=== PATIENT | male | born 1990 | race African-American/Black ===

== ENCOUNTER 2020-12-15 01:49 | Inpatient (IN) | payer MEDICAID ==
[~2020-12-15] VITALS: Ht 175.3 cm; Wt 77.1 kg
[2020-12-15] MEDS ORDERED: MORPHINE SULFATE INJ 4 MG/ML DISP.SYRIN ONE ×2 (02:27→05:05)
[2020-12-15] MEDS ORDERED: MORPHINE SULFATE INJ 2 MG/ML DISP.SYRIN IV ONE ×2 (02:30→05:00)
[2020-12-15 02:37] LABS: BASOPHILS % (AUTO) 0.3 % (0.0-2.0); EOSINOPHILS % (AUTO) 0.5 % (0.0-6.0); HEMATOCRIT 38 % (39-51); HEMOGLOBIN 12.3 g/dL (13.5-17.5); LYMPHOCYTES # (AUTO) 1.2 /CMM (0.8-4.8); LYMPHOCYTES % (AUTO) 13.8 % (20.0-44.0); MEAN CORPUSCULAR HGB CONC 32 g/dl (31.0-36.0); MEAN CORPUSCULAR VOLUME 71 fL (80-96); MONOCYTES # (AUTO) 1.3 /CMM (0.1-1.30); NEUTROPHILS # (AUTO) 6.1 /CMM (1.8-8.9); NEUTROPHILS % (AUTO) 70.4 % (43.0-81.0); PLATELET COUNT (AUTO) 284 /CMM (150-450); WHITE BLOOD COUNT (AUTO) 8.6 K/uL (4.3-11.0)
[2020-12-15 02:50] LABS: CREATININE 1.2 mg/dL (0.6-1.3); POTASSIUM 3.8 mmol/L (3.5-5.1)
[2020-12-15] MEDS ORDERED: IOHEXOL-300 100 ML VIAL IV ONE (03:15)
[2020-12-15 04:10] LABS: EOSINOPHILS % (MANUAL) 1 % (0-4); LYMPHOCYTES % (MANUAL) 9 % (16-48); MONOCYTES % (MANUAL) 17 % (0-11.0); NEUTROPHILS % (MANUAL) 73 (42-76)
[2020-12-15] MEDS ORDERED: KETOROLAC TROMETHAMINE 15 MG/ML VIAL ONE (04:27)
[2020-12-15] MEDS ORDERED: KETOROLAC TROMETHAMINE INJ 30 MG/ML VIAL IV ONE (04:30)
[2020-12-15] MEDS ORDERED: CIPROFLOXACIN IV RTU 200 ML IV ONE ×2 (04:49→20:43)
[2020-12-15] MEDS ORDERED: METRONIDAZOLE 500 MG TABLET ONE (04:49)
[2020-12-15] MEDS ORDERED: CIPROFLOXACIN IV RTU 400 MG in PREMIX 1 EA IV SCH (05:00)
[2020-12-15] MEDS ORDERED: METRONIDAZOLE 500 MG TABLET PO ONE (05:00)
[2020-12-15] MEDS ORDERED: MORPHINE SULFATE INJ 2 MG/ML DISP.SYRIN ONE (05:05)
[2020-12-15] MEDS ORDERED: ACETAMINOPHEN 325 MG TABLET PO PRN (07:00)
[2020-12-15] MEDS ORDERED: MORPHINE SULFATE INJ 2 MG/ML DISP.SYRIN IV PRN (07:00)
[2020-12-15] MEDS ORDERED: ONDANSETRON HCL/PF 4 MG/2 ML VIAL IVP PRN (07:00)
[2020-12-15 08:00] VITALS: BP 114/63
[2020-12-15] MEDS ORDERED: PIPERACILLIN /TAZOBACTAM 3.375 G in IV D5W 50 ML IV ONE (08:00)
[2020-12-15] MEDS: FAMOTIDINE (20 MG) 20 MG TABLET PO SCH (08:21)
[2020-12-15] MEDS: DOCUSATE SODIUM 250 MG CAPSULE PO SCH ×2 (08:21→20:51)
[2020-12-15] MEDS: HYDROMORPHONE 1 MG/1 ML DISP.SYRIN IV PRN ×3 (11:08→19:47)
[2020-12-15] MEDS: MORPHINE SULFATE INJ 2 MG/ML DISP.SYRIN IV PRN ×3 (12:19→22:00)
[2020-12-15 12:57] LABS: BILIRUBIN,URINE NEGATIVE (NEGATIVE); COLOR,URINE YELLOW (YELLOW); LEUKOCYTE ESTERASE ,URINE NEGATIVE (NEGATIVE); NITRITE, URINE NEGATIVE (NEGATIVE); PROTEIN,URINE TRACE mg/dl (NEGATIVE); UGLUCOSE NEGATIVE (NEGATIVE); UROBILINOGEN,URINE 0.2 EU/dL (0.2)
[2020-12-15] MEDS ORDERED: PIPERACILLIN /TAZOBACTAM 3.375 G in IV D5W 100 ML IV SCH (13:00)
[2020-12-15 13:03] LABS: BACTERIA,URINE Rare /HPF (None Seen); SQUAMOUS EPITHELIAL CELL,UR Rare /HPF (None Seen); WBC,URINE 0-2 /HPF (0-3)
[2020-12-15 16:00] VITALS: BP 126/69
[2020-12-15 20:00] VITALS: BP 130/88
[2020-12-15] MEDS: MORPHINE SULFATE INJ 4 MG/ML DISP.SYRIN IM PRN (20:52)
[2020-12-15] MEDS ORDERED: METRONIDAZOLE 500MG/ NS 100ML 100 ML IV ONE ×2 (21:05→21:06)
[2020-12-15] MEDS: CIPROFLOXACIN IV RTU 400 MG in PREMIX 1 EA IV SCH (21:22)
[2020-12-15] MEDS: ZOLPIDEM TARTRATE 5 MG TABLET PO PRN (22:19)
[2020-12-15] MEDS: METRONIDAZOLE 500MG/ NS 100ML 500 MG in PREMIX 1 EA IV SCH (22:57)
[2020-12-16] VITALS (8 sets, daily range): BP systolic 103–125; BP diastolic 68–83
[2020-12-16] MEDS: MORPHINE SULFATE INJ 4 MG/ML DISP.SYRIN IM PRN ×2 (00:01→04:21)
[2020-12-16] MEDS: MORPHINE SULFATE INJ 2 MG/ML DISP.SYRIN IV PRN ×3 (01:27→19:48)
[2020-12-16] MEDS: METRONIDAZOLE 500MG/ NS 100ML 500 MG in PREMIX 1 EA IV SCH ×2 (04:21→15:33)
[2020-12-16] MEDS: DOCUSATE SODIUM 250 MG CAPSULE PO SCH ×2 (08:47→20:50)
[2020-12-16] MEDS: FAMOTIDINE (20 MG) 20 MG TABLET PO SCH (08:47)
[2020-12-16] MEDS: CIPROFLOXACIN IV RTU 400 MG in PREMIX 1 EA IV SCH ×2 (08:48→20:44)
[2020-12-16] MEDS ORDERED: LIDOCAINE HCL/MPF 1% 30 ML VIAL IJ ONE (09:59)
[2020-12-16] MEDS ORDERED: BUPIVACAINE 0.25% 75 MG/30 ML VIAL ONE (10:00)
[2020-12-16] MEDS ORDERED: BUPIVACAINE 0.5 % PF 150 MG/30 ML VIAL ONE (10:00)
[2020-12-16 10:03] LABS: BASOPHILS # (AUTO) 0.1 /CMM (0.0-0.2); BASOPHILS % (AUTO) 0.7 % (0.0-2.0); EOSINOPHILS % (AUTO) 0.3 % (0.0-6.0); HEMATOCRIT 40 % (39-51); HEMOGLOBIN 12.6 g/dL (13.5-17.5); LYMPHOCYTES # (AUTO) 1.7 /CMM (0.8-4.8); LYMPHOCYTES % (AUTO) 14.6 % (20.0-44.0); MEAN CORPUSCULAR HGB CONC 32 g/dl (31.0-36.0); MEAN CORPUSCULAR VOLUME 71 fL (80-96); MONOCYTES # (AUTO) 1.3 /CMM (0.1-1.30); MONOCYTES % (AUTO) 11.3 % (2.0-12.0); NEUTROPHILS # (AUTO) 8.4 /CMM (1.8-8.9); NEUTROPHILS % (AUTO) 73.1 % (43.0-81.0); PLATELET COUNT (AUTO) 304 /CMM (150-450); RED BLOOD CELL COUNT(AUTO) 5.62 MIL/uL (4.5-6.0); WHITE BLOOD COUNT (AUTO) 11.5 K/uL (4.3-11.0)
[2020-12-16 10:13] LABS: ALBUMIN 3.1 g/dL (3.4-5.0); BILIRUBIN,TOTAL 0.9 mg/dL (0.2-1.0); CALCIUM, SERUM 9.5 mg/dL (8.5-10.1); CREATININE 1.2 mg/dL (0.6-1.3); POTASSIUM 3.4 mmol/L (3.5-5.1); TOTAL PROTEIN, SERUM 7.2 g/dL (6.4-8.2)
[2020-12-16] MEDS ORDERED: POTASSIUM CHLORIDE 20 MEQ TAB.PRT.SR PO SCH (11:00)
[2020-12-16] MEDS ORDERED: BUPIVACAINE MPF 0.5% W/EPI INJ 30 ML VIAL ONE (11:19)
[2020-12-16] MEDS ORDERED: FENTANYL PF 100MCG/2ML AMPUL ONE (11:38)
[2020-12-16] MEDS ORDERED: MIDAZOLAM HCL 2 MG/2ML VIAL ONE (11:39)
[2020-12-16] MEDS ORDERED: SUCCINYLCHOLINE CHLORIDE 20 MG/ML VIAL ONE (12:14)
[2020-12-16] MEDS: POTASSIUM CL. PREMIX PERIPHER. 50 ML IV SCH ×2 (12:30→14:34)
[2020-12-16] MEDS ORDERED: NEOSTIGMINE METHYLSULFATE INJ 1 MG/ML VIAL ONE (12:46)
[2020-12-16 12:47] LABS: EOSINOPHILS % (MANUAL) 1 % (0-4); LYMPHOCYTES % (MANUAL) 12 % (16-48); MONOCYTES % (MANUAL) 11 % (0-11.0); NEUTROPHILS % (MANUAL) 76 (42-76)
[2020-12-16] MEDS ORDERED: GLYCOPYRROLATE 0.2 MG/ML VIAL ONE (12:47)
[2020-12-16] MEDS ORDERED: HYDROMORPHONE 1 MG/1 ML DISP.SYRIN ONE (13:39)
[2020-12-16] MEDS ORDERED: IV LR 1000 ML 1,000 ML IV ONE (15:30)
[2020-12-16] MEDS ORDERED: POTASSIUM CHLORIDE 20 MEQ TAB.PRT.SR PO ONE (16:00)
[2020-12-16] MEDS: ZOLPIDEM TARTRATE 5 MG TABLET PO PRN (20:51)
[2020-12-16] MEDS ORDERED: PIPERACILLIN /TAZOBACTAM 3.375 G VIAL IV ONE (23:38)
[2020-12-17] MEDS: PIPERACILLIN /TAZOBACTAM 3.375 G in IV D5W 50 ML IV SCH ×2 (00:04→06:06)
[2020-12-17] MEDS: MORPHINE SULFATE INJ 2 MG/ML DISP.SYRIN IV PRN ×5 (02:43→20:56)
[2020-12-17] MEDS ORDERED: PIPERACILLIN /TAZOBACTAM 3.375 G VIAL IV ONE (06:00)
[2020-12-17 06:39] LABS: BASOPHILS # (AUTO) 0.1 /CMM (0.0-0.2); BASOPHILS % (AUTO) 0.6 % (0.0-2.0); EOSINOPHILS % (AUTO) 0.7 % (0.0-6.0); HEMATOCRIT 40 % (39-51); HEMOGLOBIN 12.8 g/dL (13.5-17.5); LYMPHOCYTES # (AUTO) 1.4 /CMM (0.8-4.8); LYMPHOCYTES % (AUTO) 14.4 % (20.0-44.0); MEAN CORPUSCULAR HGB CONC 32 g/dl (31.0-36.0); MEAN CORPUSCULAR VOLUME 72 fL (80-96); NEUTROPHILS # (AUTO) 7.4 /CMM (1.8-8.9); NEUTROPHILS % (AUTO) 74.3 % (43.0-81.0); PLATELET COUNT (AUTO) 315 /CMM (150-450); RED BLOOD CELL COUNT(AUTO) 5.64 MIL/uL (4.5-6.0); WHITE BLOOD COUNT (AUTO) 9.9 K/uL (4.3-11.0)
[2020-12-17 07:02] LABS: CALCIUM, SERUM 8.7 mg/dL (8.5-10.1); CREATININE 1.1 mg/dL (0.6-1.3); POTASSIUM 3.7 mmol/L (3.5-5.1)
[2020-12-17 08:00] VITALS: BP 108/60
[2020-12-17] MEDS: DOCUSATE SODIUM 250 MG CAPSULE PO SCH ×2 (08:35→20:56)
[2020-12-17] MEDS: FAMOTIDINE (20 MG) 20 MG TABLET PO SCH (08:35)
[2020-12-17] MEDS: PIPERACILLIN /TAZOBACTAM 3.375 G in IV D5W 100 ML IV SCH ×2 (09:16→17:01)
[2020-12-17] MEDS ORDERED: PIPERACILLIN /TAZOBACTAM 3.375 G in IV D5W 50 ML IV SCH (12:00)
[2020-12-17] MEDS: MORPHINE SULFATE INJ 4 MG/ML DISP.SYRIN IM PRN (12:43)
[2020-12-17 16:00] VITALS: BP 100/71
[2020-12-17 20:00] VITALS: BP 105/65
[2020-12-18] MEDS: PIPERACILLIN /TAZOBACTAM 3.375 G in IV D5W 100 ML IV SCH ×2 (01:02→08:02)
[2020-12-18] MEDS: MORPHINE SULFATE INJ 2 MG/ML DISP.SYRIN IV PRN (01:10)
[2020-12-18 08:00] VITALS: BP 138/72
[2020-12-18] MEDS: FAMOTIDINE (20 MG) 20 MG TABLET PO SCH (08:06)
[2020-12-18] MEDS: DOCUSATE SODIUM 250 MG CAPSULE PO SCH (08:06)
[2020-12-18 08:30] LABS: BASOPHILS % (AUTO) 0.7 % (0.0-2.0); EOSINOPHILS % (AUTO) 1.6 % (0.0-6.0); HEMATOCRIT 39 % (39-51); HEMOGLOBIN 12.4 g/dL (13.5-17.5); LYMPHOCYTES # (AUTO) 1.7 /CMM (0.8-4.8); LYMPHOCYTES % (AUTO) 43.4 % (20.0-44.0); MEAN CORPUSCULAR HGB CONC 32 g/dl (31.0-36.0); MEAN CORPUSCULAR VOLUME 71 fL (80-96); MONOCYTES # (AUTO) 0.6 /CMM (0.1-1.30); MONOCYTES % (AUTO) 15.3 % (2.0-12.0); NEUTROPHILS # (AUTO) 1.5 /CMM (1.8-8.9); PLATELET COUNT (AUTO) 342 /CMM (150-450); RED BLOOD CELL COUNT(AUTO) 5.44 MIL/uL (4.5-6.0); WHITE BLOOD COUNT (AUTO) 3.9 K/uL (4.3-11.0)
[2020-12-18 08:41] LABS: CALCIUM, SERUM 8.7 mg/dL (8.5-10.1); CREATININE 1.2 mg/dL (0.6-1.3); MAGNESIUM 1.9 mg/dL (1.8-2.4); PHOSPHORUS 4.7 mg/dL (2.5-4.9); POTASSIUM 3.7 mmol/L (3.5-5.1)
[2020-12-18] MEDS ORDERED: HYDR-3972 PO (11:11)
[2020-12-18] MEDS ORDERED: AMOX-430 PO (11:11)
== END 2020-12-18 13:40 | disposition home or self-care (01) | DRG 226 ==
LOC: ER 01:53 → MED 05:54
PROVIDERS: ADMIT Nurse Practitioner Family; ATTEND Registered Nurse
PROC: 0D9 Gastrointestinal System, Drainage (ICD-10-PCS; principal; 2020-12-16)
DX: K61.1 Rectal abscess (principal); D50.9 Iron deficiency anemia, unspecified; K59.00 Constipation, unspecified; Z20.822 Contact with and (suspected) exposure to COVID-19; Z98.890 Other specified postprocedural states; N28.1 Cyst of kidney, acquired; B95.5 Unspecified streptococcus as the cause of diseases classified elsewhere
CPT/HCPCS: 36415; 72193-TC; 80048-TC; 80053-TC; 81001; 82728-TC; 83540-TC; 83605-TC; 83735-TC; 84100-TC; 85025-TC; 85610-TC; 87040-TC; 87070-TC; 87081-TC; 87186-TC; A4216; A4217; A6403; G0378; J0330; J0690; J0744; J1100; J1170; J1885; J2250; J2270; J2543; J3010; J3480; J3490; J7050; J7060; J7120; Q9967

== ENCOUNTER 2021-05-08 00:04 | Inpatient (IN) | payer MEDICAID, OTHER ==
[~2021-05-08] VITALS: Ht 177.8 cm; Wt 85.7 kg
[~2021-05-08 00:04] MED LIST: AMOX-430 PO; HYDR-3972 PO
--- NOTE | 2021-05-08 00:15 | NUR ---
PT BIBS FOR C/O RECTAL PAIN AND CONSTIPATION HAD MULTIPLE WATERY BM YESTERDAY W/ HELP OF LAXATIVES. PT IS ALERT AND ORIENTED X3 WITH NON LABORED SPONTANEOUS BREATHING.
--- NOTE | 2021-05-08 00:30 | NUR ---
BLOOD TAKEN AND SENT TO LAB. LINE STARTED R AC 20G
[2021-05-08 00:40] LABS: BASOPHILS # (AUTO) 0.1 K/uL (0.0-0.2); EOSINOPHILS % (AUTO) 0.2 % (0.0-6.0); HEMATOCRIT 37 % (39-51); HEMOGLOBIN 11.8 g/dL (13.5-17.5); LYMPHOCYTES # (AUTO) 0.7 K/uL (0.8-4.8); LYMPHOCYTES % (AUTO) 8.5 % (20.0-44.0); MEAN CORPUSCULAR HGB CONC 32 g/dl (31.0-36.0); MEAN CORPUSCULAR VOLUME 71 fL (80-96); MONOCYTES # (AUTO) 0.9 K/uL (0.1-1.30); MONOCYTES % (AUTO) 10.6 % (2.0-12.0); NEUTROPHILS # (AUTO) 6.5 K/uL (1.8-8.9); NEUTROPHILS % (AUTO) 79.7 % (43.0-81.0); PLATELET COUNT (AUTO) 287 K/uL (150-450); RED BLOOD CELL COUNT(AUTO) 5.19 MIL/uL (4.5-6.0); WHITE BLOOD COUNT (AUTO) 8.1 K/uL (4.3-11.0)
[2021-05-08 00:48] LABS: EOSINOPHILS % (MANUAL) 1 % (0-4); LYMPHOCYTES % (MANUAL) 10 % (16-48); MONOCYTES % (MANUAL) 9 % (0-11.0); NEUTROPHILS % (MANUAL) 80 (42-76)
[2021-05-08 00:50] LABS: CALCIUM, SERUM 8.9 mg/dL (8.5-10.1); CREATININE 1.3 mg/dL (0.6-1.3); POTASSIUM 3.3 mmol/L (3.5-5.1)
[2021-05-08 00:56] LABS: ALBUMIN 3.6 g/dL (3.4-5.0); BILIRUBIN,DIRECT 0.2 mg/dL (0.0-0.2); BILIRUBIN,TOTAL 0.7 mg/dL (0.2-1.0); TOTAL PROTEIN, SERUM 7.4 g/dL (6.4-8.2)
[2021-05-08] MEDS ORDERED: CT SWABBABLE VALVE TRANS SET 1 EA INFUS.SET MC ONE (01:02)
[2021-05-08] MEDS ORDERED: IV NS 0.9% 250 ML IV ONE (01:02)
[2021-05-08] MEDS ORDERED: IOHEXOL-300 100 ML VIAL IV ONE (01:02)
--- NOTE | 2021-05-08 01:23 | NUR ---
PT BACK FROM CT.
[2021-05-08] MEDS ORDERED: ONDANSETRON HCL/PF 4 MG/2 ML VIAL IV ONE (02:00)
[2021-05-08] MEDS ORDERED: PIPERACILLIN /TAZOBACTAM 3.375 G in IV D5W 50 ML IV ONE (02:00)
[2021-05-08] MEDS ORDERED: MORPHINE SULFATE INJ 2 MG/ML DISP.SYRIN IV ONE (02:00)
[2021-05-08] MEDS ORDERED: PIPERACILLIN /TAZOBACTAM 3.375 G VIAL IV ONE (02:03)
[2021-05-08] MEDS ORDERED: ONDANSETRON HCL/PF 4 MG/2 ML VIAL ONE (02:03)
[2021-05-08] MEDS ORDERED: MORPHINE SULFATE INJ 2 MG/ML DISP.SYRIN ONE (02:04)
--- NOTE | 2021-05-08 02:11 | NUR ---
MIRID SWABBED, SENT TO LAB.
--- NOTE | 2021-05-08 03:17 | NUR ---
BED 315
--- NOTE | 2021-05-08 03:32 | NUR ---
REPORT GIVEN TO TALA WHITE
--- NOTE | 2021-05-08 03:36 | NUR ---
PT TRANSFERRED TO 315.
[2021-05-08 03:37] VITALS: BP 102/63
--- NOTE | 2021-05-08 03:59 | NUR ---
MS/TELE/RN RECEIVED PATIENT FROM [facility] VIA [facility]. PATIENT IS AWAKE, ALERT, ORIENTED, WITH PAIN LEVEL 6/10, PAIN MEDICATION NOT DUE AT THIS TIME, PER PATIENT HE WILL WAIT, NO SIGNS OF DISTRESS NOTED, ADMISSION DONE PER PROTOCOL, PATIENT REFUSED SKIN ASSESSMENT, PLAN OF CARE DISCUSSED, VERBALIZED UNDERSTANDING, TAUGHT THE USE OF CALL LIGHT AND PLACED IT AT BEDSIDE WITHIN REACH, WILL MONITOR.
[2021-05-08] MEDS ORDERED: ACETAMINOPHEN 325 MG TABLET PO PRN (04:00)
[2021-05-08] MEDS ORDERED: ONDANSETRON HCL/PF 4 MG/2 ML VIAL IVP PRN (04:00)
[2021-05-08] MEDS ORDERED: MAGNESIUM HYDROXIDE 30 ML UDC PO PRN (04:00)
[2021-05-08] MEDS ORDERED: MAG HYDROX/AL HYDROX/SIMETH 30 ML UDC PO PRN (04:00)
[2021-05-08] MEDS ORDERED: Z GUARD REMEDY 2 OZ OINT TP PRN (04:00)
[2021-05-08] MEDS: MORPHINE SULFATE INJ 2 MG/ML DISP.SYRIN IV PRN ×5 (06:16→23:39)
--- NOTE | 2021-05-08 06:16 | NUR ---
MS/TELE/RN PATIENT IS AWAKE, MORPHINE IV ORDERED WAS GIVEN FOR C/O RECTAL PAIN 06/29, ALL NEEDS ATTENDED AT THIS TIME, WILL CONTINUE TO MONITOR.
--- NOTE | 2021-05-08 07:10 | NUR ---
RN OPENING NOTE RECEIVED PATIENT IN BED. ALERT AND ORIENTED X4. ON ROOM AIR, NO SOB NOTED. IN NO APPARENT DISTRESS. CURRENTLY ON NPO STATUS. IV ACCESS ON R AC #20 G, NS @ TKO, INTACT AND PATENT. SAFETY MEASURES MAINTAINED. BED IN LOWEST POSITION, BRAKES LOCKED. SIDE RAILS UP X2,. CALL LIGHT WITHIN REACH. WILL CONTINUE PLAN OF CARE.
[2021-05-08 08:00] VITALS: BP 109/62
[2021-05-08] MEDS ORDERED: FAMO20TA8 PO (08:18)
[2021-05-08] MEDS: HYDROCODONE/APAP 5/325MG TABLET PO PRN ×4 (08:42→21:26)
[2021-05-08] MEDS: PIPERACILLIN /TAZOBACTAM 3.375 G in IV D5W 100 ML IV SCH ×3 (08:42→23:39)
[2021-05-08] MEDS ORDERED: POTASSIUM CHLORIDE 20 MEQ TAB.PRT.SR PO SCH ×2 (09:30→12:30)
[2021-05-08 16:00] VITALS: BP 109/62
--- NOTE | 2021-05-08 16:00 | NUR ---
MS RN NOTE PATIENT SEEN BY VALUATION MANAGER MAULIK. AWATING ORDERS. WILL CONTINUE TO MONITOR PATIENT.
--- NOTE | 2021-05-08 19:00 | NUR ---
RN CLOSING NOTE PATIENT IN BED. A/O X4. ON ROOM AIR, SATURATING WELL AT 97%. NO SOB NOTED. IN NO APPARENT DISTRESS. IV ACCESS ON R AC #20 G, INTACT AND PATENT. NO SIGNS OF INFILTRATION. DUE MEDS GIVEN ORDERED. ALL NEEDS HAVE BEEN MET AND ATTENDED. SAFETY MEASURES MAINTAINED. BED IN LOWEST POSITION, BRAKES LOCKED. SIDE RAILS UP X2. KEPT CALL LIGHT WITHIN REACH. WILL ENDORSE CONTINUITY OF CARE TO ONCOMING SHIFT.
--- NOTE | 2021-05-08 19:00 | NUR ---
MS RN NOTE PATIENT FOR PROCEDURE TOMORROW ORDERED. CONSENTS SIGNED AND ATTACHED TO CHART. ENDORSED TO NEXT SHIFT.
[2021-05-08 20:00] VITALS: BP 110/68
[2021-05-08] MEDS: ZOLPIDEM TARTRATE 5 MG TABLET PO PRN (22:18)
--- NOTE | 2021-05-09 00:25 | NUR ---
left ad a message regarding morphine not providiing adequate pain relief. still rating pain 6/10 hot pack given to apply to rectal area for relief. .
[2021-05-09] MEDS: HYDROCODONE/APAP 5/325MG TABLET PO PRN ×2 (00:34→21:58)
--- NOTE | 2021-05-09 00:49 | NUR ---
BEVERLY CALLED BACK NEW ORDER FOR MORPHINE 4MG IVP Q 4 HRS PRN SEVERE PAIN GIVEN. ORDER PLACED IN IN OE.
[2021-05-09] MEDS ORDERED: MORPHINE SULFATE INJ 2 MG/ML DISP.SYRIN IV PRN (01:00)
[2021-05-09 06:40] LABS: BASOPHILS % (AUTO) 0.2 % (0.0-2.0); EOSINOPHILS % (AUTO) 0.1 % (0.0-6.0); HEMATOCRIT 39 % (39-51); HEMOGLOBIN 12.6 g/dL (13.5-17.5); LYMPHOCYTES # (AUTO) 1.1 K/uL (0.8-4.8); MEAN CORPUSCULAR HGB CONC 32 g/dl (31.0-36.0); MEAN CORPUSCULAR VOLUME 71 fL (80-96); MONOCYTES # (AUTO) 0.9 K/uL (0.1-1.30); MONOCYTES % (AUTO) 8.4 % (2.0-12.0); NEUTROPHILS # (AUTO) 9.1 K/uL (1.8-8.9); NEUTROPHILS % (AUTO) 81.3 % (43.0-81.0); PLATELET COUNT (AUTO) 344 K/uL (150-450); RED BLOOD CELL COUNT(AUTO) 5.51 MIL/uL (4.5-6.0); WHITE BLOOD COUNT (AUTO) 11.2 K/uL (4.3-11.0)
[2021-05-09 06:57] LABS: CREATININE 1.2 mg/dL (0.6-1.3); MAGNESIUM 2.1 mg/dL (1.8-2.4); PHOSPHORUS 4.3 mg/dL (2.5-4.9); POTASSIUM 3.5 mmol/L (3.5-5.1)
[2021-05-09 07:05] LABS: THYROID STIMULATING HORMONE 1.583 uIU/mL (0.358-3.74)
--- NOTE | 2021-05-09 07:53 | NUR ---
RN OPENING NOTE RECEIVED PATIENT IN BED. A/O X4. ON ROOM AIR, NO SOB NOTED. IN NO APPARENT DISTRESS. CURRENTLY ON NPO STATUS. IV ACCESS ON R AC #20 G, NS @ TKO, INTACT AND PATENT. SAFETY MEASURES MAINTAINED. BED IN LOWEST POSITION, BRAKES LOCKED. SIDE RAILS UP X2,. CALL LIGHT WITHIN REACH. WILL CONTINUE PLAN OF CARE.
[2021-05-09 08:22] VITALS: BP 108/62
[2021-05-09] MEDS: PIPERACILLIN /TAZOBACTAM 3.375 G in IV D5W 100 ML IV SCH ×3 (08:26→23:34)
--- NOTE | 2021-05-09 09:55 | NUR ---
RN NOTE PT WAS BROUGHT DOWN FOR NM HIDA SCAN
[2021-05-09] MEDS ORDERED: FENTANYL PF 250MCG/5ML AMPUL IV ONE (15:30)
[2021-05-09] MEDS ORDERED: MIDAZOLAM HCL 5MG/ML VIAL 25 MG/5 ML VIAL IV ONE (15:30)
[2021-05-09] MEDS ORDERED: NALOXONE PREFILLED SYRINGE 2 MG/2 ML SYRINGE IV ONE (15:30)
[2021-05-09 16:05] VITALS: BP 128/76
--- NOTE | 2021-05-09 17:14 | NUR ---
RN NOTE PER RADIOLOGY. CT PERC DRAIN ABSCESS IS NOT GONNA HAPPEN TODAY. VIGNESH PINA MARRIAGE AND FAMILY THERAPIST, ORDERED FULL LIQUID FOR THE PT AND TO KEEP HIM ON NPO AFTER MIDNIGHT.
--- NOTE | 2021-05-09 19:30 | NUR ---
RN OPENING NOTE PATIENT IN BED, SITTING UP ON THE BED, WITH VISITOR PRESENT AT BEDSIDE. PATIENT IS ABLE TO MAKE NEEDS KNOWN, A/O X 4. PATIENT AMBULATES WELL TO THE BATHROOM. PATIENT DOES NOT COMPLAIN OF ANY PAIN AT THIS TIME. BREATHING EVEN AND UNLABORED, TOLERATES RA. PATIENT TO BE NPO AFTER MIDNIGHT FOR PROCEDURE IN AM. RAC 20 G HAS ONGOING ZOSYN AT THIS TIME. SAFETY MEASURES IN PLACE, BED LOCKED AND IN LOWEST POSITION, CALL LIGHT WITHIN REACH, SIDE RAILS UP. WILL MONITOR PATIENT CLOSELY.
[2021-05-09 20:00] VITALS: BP 120/74
--- NOTE | 2021-05-09 21:58 | NUR ---
RN NOTE PATIENT GIVEN NORCO FOR PAIN 5/10 ON HIS RECTAL AREA, WILL REASSESS PAIN MED EFFECTIVENESS
[2021-05-09] MEDS: ZOLPIDEM TARTRATE 5 MG TABLET PO PRN (23:44)
--- NOTE | 2021-05-09 23:44 | NUR ---
RN NOTE EKATERINA ADMINISTERED TO SUPERVISOR TICKET SALES PATIENT TO SLEEP REQUESTED, WILL REASSESS EFFECTIVENESS
--- NOTE | 2021-05-10 07:15 | NUR ---
RN NOTE PATIENT BREATHING EVEN AND UNLABORED, NOT IN ANY APPARENT DISTRESS. SAFETY MEASURES IN PLACE: ENDORSED TO DAY SHIFT NURSE FOR NELLY. NPO STATUS MAINTAINED.
--- NOTE | 2021-05-10 07:53 | NUR ---
MS/RN OPENING NOTE RECEIVED PATIENT IN BED. A/O X 4. PATIENT IS ABLE TO MAKE NEEDS KNOWN, PATIENT AMBULATES WELL TO THE BATHROOM. PATIENT COMPLAINS OF PAIN ON LEFT LOWER BACK 5/10-WILL GIVE PRN PAIN MEDS. BREATHING EVEN AND UNLABORED, TOLERATES ROOM AIR. PATIENT IS CURRENTLY ON NPO DUE TO THE UPCOMING PROCEDURE. RIGHT AC #20G IS INTACT AND PATENT ON SALINE LOCK. SAFETY MEASURES IN PLACE, BED LOCKED AND IN LOWEST POSITION, CALL LIGHT WITHIN REACH, SIDE RAILS UP X2. WILL CONTINUE TO MONITOR.
[2021-05-10 08:00] VITALS: BP 110/66
[2021-05-10] MEDS: PIPERACILLIN /TAZOBACTAM 3.375 G in IV D5W 100 ML IV SCH ×2 (08:36→16:01)
--- NOTE | 2021-05-10 08:59 | NUR ---
MS/RN NOTES- NPO EXCEPT MEDS PATIENT IS HAVING PAIN 5/10, HAS NORCO PRN PO, TEXTED FREDA WILLINGHAM OF DR. DESAI, PER FREDA WILLINGHAMO BUT OKAY TO GIVE MEDS.
[2021-05-10] MEDS: HYDROCODONE/APAP 5/325MG TABLET PO PRN ×3 (09:02→20:57)
--- NOTE | 2021-05-10 13:15 | NUR ---
MS/RN NOTES- CT PATIENT WAS PICKED UP BY RADIOLOGY VIA WHEELCHAIR FOR THE CT PERCUTANEOUS DRAIN ABSCESS W CATH. PATIENT IS IN NO DISTRESS.
[2021-05-10] MEDS ORDERED: FENTANYL PF 250MCG/5ML AMPUL IV ONE ×3 (14:00→16:30)
[2021-05-10] MEDS ORDERED: NALOXONE PREFILLED SYRINGE 2 MG/2 ML SYRINGE IV ONE (14:00)
[2021-05-10] MEDS ORDERED: FLUMAZENIL 0.5 MG VIAL IV ONE ×2 (14:00)
[2021-05-10] MEDS ORDERED: MIDAZOLAM HCL 5MG/ML VIAL 25 MG/5 ML VIAL IV ONE (14:00)
--- NOTE | 2021-05-10 14:30 | NUR ---
ROMAZICON AND NARCAN WERE NOT GIVEN. PATIENT TOLERATED THE FENTANYL AND VERSED.
--- NOTE | 2021-05-10 14:40 | NUR ---
MS/RN NOTES PATIENT CAME BACK FROM PROCEDURE. PER RN RADHA, PATIENT WAS GIVEN SEDATION VERSED AND FENTANYL BUT PATIENT STILL WAS IN A LOT OF PAIN. DRAINAGE CATH VIA RECTUM WAS NOT PLACED. DR. DESAI NOTIFIED. AWAITING ORDER TO RESUME DIET OR NEXT PLAN. WILL CONTINUE TO MONITOR
[2021-05-10] MEDS ORDERED: MIDAZOLAM HCL 2 MG/2ML VIAL IV ONE (14:44)
[2021-05-10] MEDS ORDERED: FENTANYL PF 100MCG/2ML AMPUL IV ONE (14:44)
[2021-05-10 15:59] VITALS: BP 100/60
--- NOTE | 2021-05-10 17:53 | NUR ---
MS/RN NOTES- DIET FOLLOWED UP WITH DR. DESAI REGARDING DIET ORDER FOR THE PATIENT WHO [facility]EN [facility], PER DR. DESAI- CALL HOSPITALIST. CALLED DR. MULLINS AND WAS ABLE TO GET A PHONE ORDER TO ORDER SOFT DIET FOR THE PATIENT STARTING DINNER TODAY. WILL CARRY OUT ORDER.
--- NOTE | 2021-05-10 18:53 | NUR ---
MS/RN CLOSING NOTE PATIENT IN BED. A/O X 4. PATIENT IS ABLE TO MAKE NEEDS KNOWN, PATIENT AMBULATES WELL TO THE BATHROOM. BREATHING EVEN AND UNLABORED, TOLERATES ROOM AIR. PATIENT NOW ON SOFT DIET STARTED THIS DINNER TIME. NO PAIN REPORTED AT THIS TIME. RIGHT AC #20G IS INTACT AND PATENT ON SALINE LOCK. SAFETY MEASURES IN PLACE, BED LOCKED AND IN LOWEST POSITION, CALL LIGHT WITHIN REACH, SIDE RAILS UP X2. WILL ENDORSE TO THE NEXT SHIFT FOR NELLY.
--- NOTE | 2021-05-10 19:15 | NUR ---
RN OPENING NOTES PT AWAKE IN BED, A/O X4, ABLE TO VERBALIZE ALL NEEDS. HE DENIES ANY PAIN OR DISCOMFORT AT THIS TIME. ON ROOM AIR AND TOLERATING WELL. NO SOB. IV SITE ON R-AC INTACT, PATENT, AND FLUSHES WELL. PT AMBULATES TO BR WITH STEADY GAIT. PT IN NO ACUTE DISTRESS. SAFETY MEASURES IN PLACE, BED IN LOWEST LOCKED POSITION, S/R UP X2, CALL LIGHT WITHIN EASY REACH. WILL CONTINUE TO MONITOR.
[2021-05-10 20:00] VITALS: BP 113/73
--- NOTE | 2021-05-10 20:30 | NUR ---
RN NOTES NOTED PT'S IV SITE IN PLACE BUT LEAKING. REMOVED AND RESTARTED NEW IV SITE ON L-FA G#20 X1 WITH GOOD BLOOD RETURN. PT TOLERATED IT WELL.
[2021-05-11] MEDS: PIPERACILLIN /TAZOBACTAM 3.375 G in IV D5W 100 ML IV SCH ×4 (00:25→23:39)
--- NOTE | 2021-05-11 07:24 | NUR ---
RN CLOSING NOTES PT RESTING IN BED, EASILY AWAKENS TO STIMULI, A/O X4, DENIES ANY PAIN OR DISCOMFORT AT THIS TIME. IV SITE ON L-FA INTACT/PATENT AND FLUSHES WELL. PT SLEPT WELL DURING THE NIGHT. PT IN NO ACUTE DISTRESS. ENDORSED TO NEXT SHIFT.
--- NOTE | 2021-05-11 07:35 | NUR ---
MS RN OPENING NOTES RECEIVED PATIENT ASLEEP IN BED, EASY TO AROUSE. ALERT AND ORIENTED X 4. ABLE TO MAKE NEEDS KNOWN. NO SOB. NO SIGNS OR SYMPTOMS OF DISTRESS NOTED. BREATHING IS EVEN AND UNLABORED. IV ACCESS LFA#20 PATENT, INTACT AND FLUSHING WELL. SAFETY MEASURES IN PLACE WITH BED LOCKED AT LOW POSITION AND SIDE RAILS UP X2. CALL LIGHT WITHIN REACH. WILL CONTINUE TO MONITOR PATIENT THROUGHOUT SHIFT.
[2021-05-11 08:00] VITALS: BP 114/66
--- NOTE | 2021-05-11 19:05 | NUR ---
RN CLOSING NOTES PATIENT RESTING IN BED, EASILY AWAKENS TO STIMULI. A/O X4.NO COMPLAINTS OF PAIN OR DISCOMFORT AT THIS TIME. IV SITE ON LFA#20 INTACT/PATENT AND FLUSHING WELL. ALL NEEDS MET THROUGHOUT SHIFT. SAFETY MEASURES IN PLACE. CALL LIGHT WITHIN REACH. WILL ENDORSE CONTINUITY OF CARE TO ONCOMING SHIFT.
--- NOTE | 2021-05-11 19:10 | NUR ---
RN OPENING NOTES PT IN BED USING HIS LAPTOP. A/OX4, ABLE TO VERBALIZE ALL NEEDS. NO C/O PAIN OR DISCOMFORT AT THIS TIME. IV SITE ON L-FA #20 INTACT/PATENT, AND FLUSHES WELL. PT AMBULATES TO BR WITH STEADY GAIT. ALL NEEDS ATTENDED TO. SAFETY MEASURES IN PLACE, BED IN LOWEST LOCKED POSITION, S/R UP X2, CALL LIGHT WITHIN REACH. WILL CONTINUE TO MONITOR.
[2021-05-11 20:00] VITALS: BP 124/57
--- NOTE | 2021-05-12 06:55 | NUR ---
RN CLOSING NOTES PT ASLEEP, EASILY AWAKENS TO STIMULI. HE DENIES ANY PAIN OR DISCOMFORT AT THIS TIME. RESPIRATIONS EVEN AND UNLABORED, ON ROOM AIR. IV SITE ON L-FA INTACT AND PATENT. PT SLEPT WELL DURING THE NIGHT. NO ACUTE DISTRESS NOTED. WILL ENDORSE TO NEXT SHIFT NURSE.
[2021-05-12] MEDS: PIPERACILLIN /TAZOBACTAM 3.375 G in IV D5W 100 ML IV SCH (07:54)
[2021-05-12 08:15] VITALS: BP 112/72
--- NOTE | 2021-05-12 15:37 | NUR ---
MS HOSEMAN NOTES RECEIVED ORDER FOR DISCHARGE. REVIEWED DISCHARGE INSTRUCTIONS WITH PATIENT AND SIGNED DISCHARGE PAPERWORK. PATIENT VERBALIZED UNDERSTANDING. PATIENT LEFT UNIT WITH STALE VITAL SIGNS. IV ACCESS AND ID BAND REMOVED. ALL BELONGINGS RETURNED. PATIENT LEFT UNIT VIA WHEELCHAIR ACCOMPANIED BY STUDENT NURSEMARCO A. PATIENT WAS OBSERVED LEAVING IN PRIVATE CAR.
== END 2021-05-12 15:00 | disposition home or self-care (01) | DRG 254 ==
LOC: ER 00:06 → MED 03:25
PROVIDERS: ADMIT Internal Medicine; ATTEND Internal Medicine
PROC: 0D9P3ZZ Drainage of Rectum, Percutaneous Approach (ICD-10-PCS; principal; 2021-05-11)
DX: K61.1 Rectal abscess (principal); D50.9 Iron deficiency anemia, unspecified; K59.00 Constipation, unspecified; K64.9 Unspecified hemorrhoids; Z20.822 Contact with and (suspected) exposure to COVID-19; Z98.890 Other specified postprocedural states; E87.6 Hypokalemia
CPT/HCPCS: 36415; 72193-TC; 75989-TC; 80048-TC; 80061-TC; 80076-TC; 83735-TC; 84100-TC; 84443-TC; 85025-TC; 85730-TC; 87070-TC; 87081-TC; 87186-TC; C9803; G0378; J2250; J2270; J2310; J2405; J2543; J3010; J3490; J7040; J7050; J7060; Q9967

== ENCOUNTER 2022-08-06 12:06 | Inpatient (IN) | payer OTHER ==
[~2022-08-06] VITALS: Ht 172.7 cm; Wt 74.8 kg
[~2022-08-06 12:06] MED LIST changes: +ACET-907 PO; -HYDR-3972 PO
--- NOTE | 2022-08-06 12:15 | NUR ---
ft none tender to touch with n/v or vomition REceved pt 32 yrs male came from home c/o rectale pain constipation for 2 days abdomine so
--- NOTE | 2022-08-06 13:00 | NUR ---
seen by dr. hammond
--- NOTE | 2022-08-06 13:15 | NUR ---
blood drow by lab tach
[2022-08-06 13:40] LABS: BASOPHILS % (AUTO) 0.3 % (0.0-2.0); EOSINOPHILS % (AUTO) 0.5 % (0.0-6.0); HEMATOCRIT 38 % (39-51); LYMPHOCYTES # (AUTO) 0.9 K/uL (0.8-4.8); LYMPHOCYTES % (AUTO) 14.6 % (20.0-44.0); MEAN CORPUSCULAR HGB CONC 32 g/dl (31.0-36.0); MEAN CORPUSCULAR VOLUME 70 fL (80-96); MONOCYTES # (AUTO) 0.9 K/uL (0.1-1.30); MONOCYTES % (AUTO) 14.5 % (2.0-12.0); NEUTROPHILS # (AUTO) 4.4 K/uL (1.8-8.9); NEUTROPHILS % (AUTO) 70.1 % (43.0-81.0); PLATELET COUNT (AUTO) 287 K/uL (150-450); RED BLOOD CELL COUNT(AUTO) 5.41 MIL/uL (4.5-6.0); WHITE BLOOD COUNT (AUTO) 6.3 K/uL (4.3-11.0)
[2022-08-06 14:06] LABS: CALCIUM, SERUM 9.4 mg/dL (8.5-10.1); CREATININE 1.1 mg/dL (0.6-1.3); POTASSIUM 4.1 mmol/L (3.5-5.1)
[2022-08-06 14:14] LABS: ALBUMIN 3.3 g/dL (3.4-5.0); BILIRUBIN,DIRECT 0.2 mg/dL (0.0-0.2); BILIRUBIN,TOTAL 0.7 mg/dL (0.2-1.0)
[2022-08-06] MEDS ORDERED: PIPERACILLIN /TAZOBACTAM 3.375 G in IV D5W 50 ML IV ONE (14:30)
[2022-08-06] MEDS ORDERED: ONDANSETRON HCL/PF 4 MG/2 ML VIAL IVP ONE (14:30)
[2022-08-06] MEDS ORDERED: IV NS 0.9% 1,000 ML BAG IV ONE (14:30)
[2022-08-06] MEDS ORDERED: MORPHINE SULFATE INJ 2 MG/ML DISP.SYRIN IV ONE ×2 (14:30→19:30)
--- NOTE | 2022-08-06 14:30 | NUR ---
INSERTED NANGO CATHETER G 18 ON RT AC BLLOD CULTURE BLOOD DROW AND SENT TO LAB STERTEED IVF NS INFUSED AND PATENT
[2022-08-06] MEDS ORDERED: MORPHINE SULFATE INJ 4 MG/ML DISP.SYRIN ONE ×2 (14:39→19:16)
[2022-08-06] MEDS ORDERED: PIPERACILLIN /TAZOBACTAM 3.375 G VIAL IV ONE (14:39)
[2022-08-06] MEDS ORDERED: ONDANSETRON HCL/PF 4 MG/2 ML VIAL ONE (14:39)
[2022-08-06] MEDS ORDERED: IOHEXOL-300 100 ML VIAL IV ONE (14:58)
[2022-08-06] MEDS ORDERED: IV NS 0.9% 250 ML IV ONE (14:58)
--- NOTE | 2022-08-06 15:00 | NUR ---
TO CT SCAN WITH CONTRAST
[2022-08-06 15:18] LABS: ALBUMIN 3.4 g/dL (3.4-5.0); BILIRUBIN,DIRECT 0.2 mg/dL (0.0-0.2); BILIRUBIN,TOTAL 0.7 mg/dL (0.2-1.0); TOTAL PROTEIN, SERUM 8.1 g/dL (6.4-8.2)
--- NOTE | 2022-08-06 17:34 | NUR ---
MOVE SHEET SUBMITTED.
--- NOTE | 2022-08-06 18:00 | NUR ---
AWAITING DIPOSITION OF PATIENT BY .
[2022-08-06] MEDS ORDERED: Z GUARD REMEDY 4 OZ OINT TP PRN (19:30)
[2022-08-06] MEDS ORDERED: ACETAMINOPHEN 325 MG TABLET PO PRN (19:30)
[2022-08-06] MEDS ORDERED: MAG HYDROX/AL HYDROX/SIMETH 30 ML UDC PO PRN (19:30)
[2022-08-06] MEDS ORDERED: ONDANSETRON HCL/PF 4 MG/2 ML VIAL IVP PRN (19:30)
--- NOTE | 2022-08-06 19:38 | NUR ---
HAND OFF PINKY EDGAR
--- NOTE | 2022-08-06 19:40 | NUR ---
room 119-1
--- NOTE | 2022-08-06 19:44 | NUR ---
repot given to eugene cardoso for ramin
[2022-08-06 20:15] VITALS: BP 130/82
--- NOTE | 2022-08-06 20:30 | NUR ---
JOSS/NETWORK MANAGEMENT SPECIALIST @1999-REPORT RECEIVED AT 1999 FROM ER NURSE. @2029-PT AMBULATED TO BED WITH STEADY GAIT.PT DENIES PAIN, ORDERS CARRIED OUT.
--- NOTE | 2022-08-06 20:31 | NUR ---
PT TRANSPORTEWD TO UNIT BY RN. NO DISTRESS NOTED.
[2022-08-06] MEDS ORDERED: MAGNESIUM HYDROXIDE 30 ML UDC PO PRN (22:00)
[2022-08-06] MEDS ORDERED: TEMAZEPAM 15 MG CAPSULE PO PRN (22:00)
[2022-08-06] MEDS: ENOXAPARIN SODIUM 40 MG/0.4 ML DISP.SYRIN SQ SCH (22:08)
[2022-08-06] MEDS: IV NS 0.9% 1,000 ML IV PRN (22:10)
[2022-08-07] MEDS: MORPHINE SULFATE INJ 2 MG/ML DISP.SYRIN IV PRN ×5 (00:38→21:18)
[2022-08-07] MEDS: PIPERACILLIN /TAZOBACTAM 3.375 G in IV D5W 50 ML IV SCH ×5 (00:45→23:16)
--- NOTE | 2022-08-07 00:45 | NUR ---
JOSS/SMOKING PIPE MAKER @0030PT C/O OF PAIN 06/29 TO RECTUM, CHARGE NURSE GAVE IVP MORPHINE 4MG FOR THIS. CALL LIGHT W/IN REACH. WILL MONITOR THIS. @0045-PT C/O OF N/V CHARGE NURSE GAVE ZOFRAN IVP WILL MONITOR THIS WELL.
[2022-08-07 04:00] VITALS: BP 103/70
--- NOTE | 2022-08-07 06:24 | NUR ---
JOSS/CANCER CENTER DIRECTOR @0615 PT C/O OF PAIN 06/29 TO RECTUM, CHARGE NURSE GAVE IVP MORPHINE 4MG FOR THIS. CALL LIGHT W/IN REACH. WILL MONITOR THIS.
[2022-08-07 06:51] LABS: CALCIUM, SERUM 8.4 mg/dL (8.5-10.1); MAGNESIUM 2.1 mg/dL (1.8-2.4); PHOSPHORUS 4.3 mg/dL (2.5-4.9); POTASSIUM 3.8 mmol/L (3.5-5.1)
[2022-08-07 06:54] LABS: BASOPHILS % (AUTO) 0.2 % (0.0-2.0); HEMATOCRIT 35 % (39-51); HEMOGLOBIN 11.5 g/dL (13.5-17.5); LYMPHOCYTES # (AUTO) 1.1 K/uL (0.8-4.8); LYMPHOCYTES % (AUTO) 19.5 % (20.0-44.0); MEAN CORPUSCULAR HGB CONC 33 g/dl (31.0-36.0); MEAN CORPUSCULAR VOLUME 69 fL (80-96); MONOCYTES # (AUTO) 0.6 K/uL (0.1-1.30); MONOCYTES % (AUTO) 10.9 % (2.0-12.0); NEUTROPHILS # (AUTO) 3.8 K/uL (1.8-8.9); NEUTROPHILS % (AUTO) 68.4 % (43.0-81.0); PLATELET COUNT (AUTO) 282 K/uL (150-450); RED BLOOD CELL COUNT(AUTO) 5.04 MIL/uL (4.5-6.0); WHITE BLOOD COUNT (AUTO) 5.5 K/uL (4.3-11.0)
--- NOTE | 2022-08-07 07:39 | NUR ---
RN NOTE PT RECEIVED AWAKE IN BED, ALERT AND VERBALLY RESPONSIVE. WITH IV ON RAC G 18 WITH IVF NS RUNNING @75CC/HR. PT IN ROOM AIR. NOT IN RESPI DISTRESS. SAFETY MAINTAINED. WILL CONTINUE TO MONITOR.
[2022-08-07] MEDS: PANTOPRAZOLE 40 MG TABLET.DR PO SCH (08:10)
[2022-08-07 12:00] VITALS: BP 113/66
[2022-08-07] MEDS ORDERED: FENTANYL PF 100MCG/2ML AMPUL ONE (16:08)
--- NOTE | 2022-08-07 16:56 | NUR ---
RN NOTE PT LEFT FOR SURGERY. PICKED UP BY OR PERSONNEL. PRE OP CHECKLIST AND CONSENT FORMS DONE.
[2022-08-07] MEDS ORDERED: BUPIVACAINE MPF 0.5% W/EPI INJ 30 ML VIAL ONE (18:14)
[2022-08-07] MEDS ORDERED: LIDOCAINE 1% INJ 50 ML MDV IJ ONE (18:14)
[2022-08-07 20:00] VITALS: BP 113/66
[2022-08-07] MEDS: ENOXAPARIN SODIUM 40 MG/0.4 ML DISP.SYRIN SQ SCH (20:17)
--- NOTE | 2022-08-07 20:30 | NUR ---
RN NOTE PT RECEIVED BACK FROM OR, S/P I&D PREIRECTAL ABSCESS. PT IN NO RESPI DISTRESS AT THIS TIME. ALL VS STABLE. ON RA SATING AT 96%. A/O X 4, AWAKE AND ABLE TO VERBALIZE NEEDS. WILL CONTINUE TO MONITOR FOR ANY CHANGES.
--- NOTE | 2022-08-07 20:40 | NUR ---
RN NOTE ASKED SORTING COWS WORKER TOMY REGARDING PT'S LOVENOX ORDER AND DIET AFTER THE SURGERY. HE SAID OK TO RESUME LOVENOX AND DIET. COPIED AND CARRIED OUT.
[2022-08-07] MEDS: IV NS 0.9% 1,000 ML IV PRN (21:18)
[2022-08-08] MEDS: MORPHINE SULFATE INJ 2 MG/ML DISP.SYRIN IV PRN ×4 (01:21→13:29)
--- NOTE | 2022-08-08 03:48 | NUR ---
RN NOTE PT NOTED TO HAVE HIGH FEVER. PT ALSO SAYS HE IS STILL IN PAIN. TYLENOL GIVEN ORDERED. COLD COMPRESS APPLIED. WILL CONTINUE TO MONITOR.
[2022-08-08 04:00] VITALS: BP 112/65
[2022-08-08] MEDS: PIPERACILLIN /TAZOBACTAM 3.375 G in IV D5W 50 ML IV SCH ×4 (05:13→23:45)
--- NOTE | 2022-08-08 06:17 | NUR ---
RN NOTE ALL DUE MEDS AND PAIN MEDS GIVEN PER PT REQUEST. VS STABLE. PT IS NOW AFEBRILE. ALL NEEDS ATTENDED. WILL ENDORSE TO AM SHIFT NURSE FOR NELLY.
[2022-08-08 07:26] LABS: BASOPHILS % (AUTO) 0.2 % (0.0-2.0); HEMATOCRIT 36 % (39-51); HEMOGLOBIN 11.7 g/dL (13.5-17.5); LYMPHOCYTES # (AUTO) 0.5 K/uL (0.8-4.8); LYMPHOCYTES % (AUTO) 6.3 % (20.0-44.0); MEAN CORPUSCULAR HGB CONC 33 g/dl (31.0-36.0); MEAN CORPUSCULAR VOLUME 70 fL (80-96); MONOCYTES # (AUTO) 0.4 K/uL (0.1-1.30); MONOCYTES % (AUTO) 4.9 % (2.0-12.0); NEUTROPHILS # (AUTO) 7.3 K/uL (1.8-8.9); NEUTROPHILS % (AUTO) 88.6 % (43.0-81.0); PLATELET COUNT (AUTO) 324 K/uL (150-450); RED BLOOD CELL COUNT(AUTO) 5.19 MIL/uL (4.5-6.0); WHITE BLOOD COUNT (AUTO) 8.3 K/uL (4.3-11.0)
--- NOTE | 2022-08-08 07:30 | NUR ---
MS RN AM NOTES RECEIVED PT IN BED, AOX4, ON ROOM AIR, O2 SAT 98%, RESPIRATION UNLABORED, DENIES CHEST PAIN/DISCOMFORT, S/P I&D OF PERIRECTAL ABSCESS BY DR. Judy DESAI, IV ACCESS TO RAC G 18 WITH NS AT 75ML/HR INFUSING WELL, SITE CLEAR, BED REST FOR NOW, REGULAR DIET. WOUND TREATMENT ORDERED. USES URINAL, NO OTHER SKIN ISSUES. POC DISCUSSED, VERBALIZED UNDERSTANDING. SAFETY MEASURES IN PLACE, BED LOW LOCKED, SR UP X2, CALL LIGHT WITHIN REACH. WILL CONT TO MONITOR.
[2022-08-08 07:31] LABS: CALCIUM, SERUM 8.4 mg/dL (8.5-10.1); POTASSIUM 3.8 mmol/L (3.5-5.1)
[2022-08-08] MEDS: PANTOPRAZOLE 40 MG TABLET.DR PO SCH (07:44)
[2022-08-08 08:00] VITALS: BP 107/60
--- NOTE | 2022-08-08 09:30 | NUR ---
RN NOTES DUE MEDS GIVEN
[2022-08-08] MEDS: IV NS 0.9% 1,000 ML IV PRN ×2 (12:20→23:45)
[2022-08-08 13:22] LABS: LYMPHOCYTES % (MANUAL) 12 % (16-48); MONOCYTES % (MANUAL) 6 % (0-11.0); NEUTROPHILS % (MANUAL) 82 (42-76)
[2022-08-08] MEDS ORDERED: IBUPROFEN 400 MG TABLET PO PRN (14:30)
[2022-08-08] MEDS: HYDROMORPHONE 1 MG/1 ML DISP.SYRIN IV PRN ×2 (14:48→17:19)
[2022-08-08] MEDS: DAKINS QUARTER STRENGTH (0.125%) 480 ML BOTTLE TOP SCH (15:18)
[2022-08-08] MEDS: HYDROCODONE/APAP 5/325MG TABLET PO PRN ×2 (15:21→20:26)
[2022-08-08 16:00] VITALS: BP 105/61
[2022-08-08] MEDS: GABAPENTIN 100 MG CAPSULE PO SCH (17:02)
--- NOTE | 2022-08-08 18:12 | NUR ---
RN NOTES CHARGE NURSE TYLER AND NOTIFIED DR. PLASCENCIA RE LABORATORY COULD NOT RUN [employer] FOR WOUND SPECIMEN AND WILL JUST DO GM STAINING INSTEAD NOTIFIED DR. DUGLAS DESAI AND VIGNESH PEDERSON PLAY LEADER NOTIFIED WELL THAT LAB COULD NOT RUN TEST FOR [employer] FOR PERIRECTAL ABSCESS SPECIMEN
--- NOTE | 2022-08-08 18:29 | NUR ---
MS RN CLOSING NOTES PT IN BED, AOX4, RESTING COMFORTABLY. ON ROOM AIR, O2 SAT 98%, RESPIRATION UNLABORED, DENIES CHEST PAIN/DISCOMFORT, S/P I&D OF PERIRECTAL ABSCESS BY DR. Judy DESAI, IV ACCESS TO RAC G 18 WITH NS AT 75ML/HR INFUSING WELL, SITE CLEAR, BED REST FOR NOW, REGULAR DIET. WOUND TREATMENT ORDERED. USES URINAL, NO OTHER SKIN ISSUES. SAFETY MEASURES IN PLACE, BED LOW LOCKED, SR UP X2, CALL LIGHT WITHIN REACH. WILL ENDORSE TO NEXT SHIFT FOR NELLY. MIR PEDERSON PARTS FACILITATOR AT BEDSIDE EARLIER FOR WOUND CARE. PM CARE DONE EARLIER
[2022-08-08 20:00] VITALS: BP 117/73
[2022-08-08] MEDS: ENOXAPARIN SODIUM 40 MG/0.4 ML DISP.SYRIN SQ SCH (20:17)
--- NOTE | 2022-08-08 23:23 | NUR ---
MS CHILD NUTRITION MANAGER NOTE PT TRANSFERRED ONTO UNIT AT THIS TIME. A/O X4 AND ABLE TO MAKE NEEDS KNOWN. PT STABLE ON ROOM AIR. NO SOB OR S/S OF RESPIRATORY DISTRESS. BREATHING EVEN AND UNLABORED. IV ACCESS RAC 18G, INTACT AND PATENT. SAFETY PRECAUTIONS IN PLACE. BED IN LOWEST LOCKED POSITION, HOB ELEVATED, SIDE RAILS UP X2, AND CALL LIGHT AND TABLE WITHIN REACH. ORIENTED TO UNIT, STAFF, AND ROOM. ALL NEEDS MET AT THIS TIME AND WILL CONTINUE WITH PLAN OF CARE.
[2022-08-08 23:35] VITALS: BP 114/74
[2022-08-09] MEDS: HYDROCODONE/APAP 5/325MG TABLET PO PRN ×3 (00:32→13:59)
--- NOTE | 2022-08-09 00:33 | NUR ---
RN NOTE PT COMPLAINED OF PAIN 6/10 OF LOWER BACK/ANAL REGION. ADMINISTERED NORCO 5-325 MG FOR MODERATE PAIN ORDERED. MADE COMFORTABLE IN BED. ALL NEEDS MET AT THIS TIME.
[2022-08-09] MEDS ORDERED: GUAIFENESIN/D-METHORPHAN HB 5 ML UDC PO PRN (01:00)
[2022-08-09] MEDS: GUAIFENESIN/D-METHORPHAN HB 5 ML UDC PO PRN ×3 (01:19→13:59)
--- NOTE | 2022-08-09 01:19 | NUR ---
RN NOTE PT COMPLAINED OF NON PRODUCTIVE COUGH. PT IS AFEBRILE AND STATED HE HAS SEASONAL ALLERGIES. REQUESTED MEDICATION FOR COUGH. INFORMED METER AND REGULATOR SHOP SUPERVISOR BATACLAN WITH NEW ORDER FOR ROBITUSSIN DM 10 ML PO Q4H PRN FOR COUGH. NOTED AND CARRIED OUT. ADMINISTERED MEDICATION ORDERED. MADE COMFORTABLE IN BED. ALL NEEDS MET AT THIS TIME.
[2022-08-09] MEDS: PIPERACILLIN /TAZOBACTAM 3.375 G in IV D5W 50 ML IV SCH ×2 (05:06→11:30)
[2022-08-09] MEDS: HYDROMORPHONE 1 MG/1 ML DISP.SYRIN IV PRN ×3 (05:06→11:30)
--- NOTE | 2022-08-09 05:08 | NUR ---
RN NOTE PT COMPLAINED OF PAIN 10/10 OF LOWER BACK/ANAL REGION. ADMINISTERED DILAUDID 1 MG FOR SEVERE PAIN ORDERED. MADE COMFORTABLE IN BED. ALL NEEDS MET AT THIS TIME.
--- NOTE | 2022-08-09 06:32 | NUR ---
MS RN CLOSING NOTE PT RESTING IN BED, VERBALLY RESPONSIVE. A/O X4 AND ABLE TO MAKE NEEDS KNOWN. PT STABLE ON ROOM AIR. NO SOB OR S/S OF RESPIRATORY DISTRESS. BREATHING EVEN AND UNLABORED. IV ACCESS RAC 18G, INTACT AND PATENT, RUNNING NS @ 75 ML/HR. ALL DUE MEDS GIVEN ORDERED. SAFETY PRECAUTIONS IN PLACE AT ALL TIMES. BED IN LOWEST LOCKED POSITION, HOB ELEVATED, SIDE RAILS UP X2, AND CALL LIGHT AND TABLE WITHIN REACH. ALL NEEDS MET AT THIS TIME AND WILL ENDORSE TO ONCOMING NURSE FOR NELLY.
[2022-08-09 06:46] LABS: BASOPHILS % (AUTO) 0.3 % (0.0-2.0); EOSINOPHILS % (AUTO) 0.9 % (0.0-6.0); HEMATOCRIT 34 % (39-51); LYMPHOCYTES # (AUTO) 1.1 K/uL (0.8-4.8); LYMPHOCYTES % (AUTO) 22.4 % (20.0-44.0); MEAN CORPUSCULAR HGB CONC 32 g/dl (31.0-36.0); MEAN CORPUSCULAR VOLUME 69 fL (80-96); MONOCYTES # (AUTO) 0.4 K/uL (0.1-1.30); MONOCYTES % (AUTO) 8.9 % (2.0-12.0); NEUTROPHILS # (AUTO) 3.2 K/uL (1.8-8.9); NEUTROPHILS % (AUTO) 67.5 % (43.0-81.0); PLATELET COUNT (AUTO) 311 K/uL (150-450); RED BLOOD CELL COUNT(AUTO) 4.97 MIL/uL (4.5-6.0); WHITE BLOOD COUNT (AUTO) 4.8 K/uL (4.3-11.0)
[2022-08-09 07:00] VITALS: BP 122/85
--- NOTE | 2022-08-09 07:30 | NUR ---
MS RN OPEN NOTE RECEIVED RESTING IN BED, A/O X4, ABLE TO MAKE NEEDS KNOWN. ON ROOM AIR, STABLE, NO SOB OR S/S OF RESPIRATORY DISTRESS. BREATHING EVEN AND UNLABORED. IV ACCESS RAC 18G, INTACT AND PATENT, RUNNING NS @ 75 ML/HR. SAFETY PRECAUTIONS IN PLACE: BED IN LOWEST LOCKED POSITION, SIDE RAILS UP X2, AND CALL LIGHT AND TRAYTABLE WITHIN REACH. WILL CONTINUE TO MONITOR DURING MY SHIFT.
[2022-08-09 08:01] LABS: CALCIUM, SERUM 8.2 mg/dL (8.5-10.1); CARBON DIOXIDE 27 mmol/L (21-32); CREATININE 1.1 mg/dL (0.6-1.3); GLUCOSE 85 mg/dL (74-106); POTASSIUM 3.4 mmol/L (3.5-5.1); SODIUM SERUM 139 mmol/L (136-145); UREA NITROGEN, BLOOD 8 mg/dL (7-18)
[2022-08-09] MEDS: PANTOPRAZOLE 40 MG TABLET.DR PO SCH (08:16)
[2022-08-09] MEDS: GABAPENTIN 100 MG CAPSULE PO SCH ×2 (08:17→13:59)
[2022-08-09] MEDS: DAKINS QUARTER STRENGTH (0.125%) 480 ML BOTTLE TOP SCH (08:23)
[2022-08-09] MEDS ORDERED: HYDR-4303 PO (08:51)
[2022-08-09] MEDS ORDERED: AMOX-430 PO (08:51)
[2022-08-09 09:18] LABS: EOSINOPHILS % (MANUAL) 1 % (0-4); LYMPHOCYTES % (MANUAL) 24 % (16-48); MONOCYTES % (MANUAL) 8 % (0-11.0); NEUTROPHILS % (MANUAL) 67 (42-76)
[2022-08-09] MEDS ORDERED: POTASSIUM CHLORIDE 20 MEQ TAB.PRT.SR PO SCH (11:00)
--- NOTE | 2022-08-09 15:24 | NUR ---
MS RN DISCHARGED PT DISCHARGED TO HOME WITH HOME HEALTH IN STABLE CONDITION. PT AOX4, ABLE TO MAKE NEEDS KNOW, ON ROOM AIR SATURATING WELL AT 98%. NO SOB NOTED. VS TAKEN, STABLE AND RECORDED. PT IS S/P I/D IN THE BILATERAL BUTTOCKS FOR ABSCESS, WITH DRAINS, WOUND TREATMENT GIVEN ORDERED, EDUCATED THE PATIENT WELL ON HOW TO CARE FOR THE WOUNDS. LEFT WITH 2 DAYS WORTH OF WOUND SUPPLIES PER CM. PICTURE TAKEN AND RECORDED, ALL VALUABLES AND BELONGINGS ACCOUNTED FOR AND SIGNED. REMOVED IV RAC G#18 WITH NO ACTIVE BLEEDING NOTED, APPLIED DRY DRESSING AT SITE. DISCHARGE INSTRUCTIONS GIVEN TO PATIENT. PATIENT LEFT THE UNIT AT 1445 VIA WHEELCHAIR, PICKED UP BY BROTHER. ACCOMPANIED TO THE LOBBY SAFELY. MD AND CHARGE NURSE AWARE OF THE DISCHARGE.
== END 2022-08-09 14:35 | disposition home health service (06) | DRG 254 ==
LOC: ER 12:15 → MEDSG1 19:55 → MED 08-08 22:57
PROVIDERS: ADMIT Nurse Practitioner Acute Care; ATTEND Internal Medicine
PROC: 0D9P80Z Drainage of Rectum with Drainage Device, Via Natural or Artificial Opening Endoscopic (ICD-10-PCS; principal; 2022-08-07)
DX: K61.1 Rectal abscess (principal); D50.9 Iron deficiency anemia, unspecified; Z20.822 Contact with and (suspected) exposure to COVID-19; Z98.890 Other specified postprocedural states
CPT/HCPCS: 36415; 71045-TC; 72193-TC; 80048-TC; 80076-TC; 83605-TC; 83690-TC; 83735-TC; 84100-TC; 85025-TC; 85730-TC; 87040-TC; 87070-TC; 87075-TC; 87081-TC; 87186-TC; A4217; A6253; A6403; C9803; G0378; J0330; J0690; J1100; J1170; J1650; J1885; J2270; J2405; J2543; J2704; J3010; J3490; J7030; J7050; J7060; Q9967